=== PATIENT | male | born 1985 | race Caucasian/White ===

== ENCOUNTER 2017-11-26 13:50 | Emergency (ER) | payer OTHER ==
[2017-11-26] MEDS ORDERED: NS 500 ML IV ONE (14:09)
--- NOTE | 2017-11-26 14:24 | CPEKG ---
Heart Rate: 85 RR Interval: 706 P-R Interval: 136 QRSD Interval: 106 QT Interval: 380 QTC Interval: 452 P [place]: 71 QRS [place]: 84 T Wave [place]: 34 EKG Severity - NORMAL ECG - EKG Impression: SINUS RHYTHM Electronically Signed By: Fran Broussard 26-Nov-2017 14:48:00
[2017-11-26 14:34] LABS: PLATELET COUNT 229 10^3/uL (150-400)
--- NOTE | 2017-11-26 15:44 | EDPHY ---
H & P Time Seen by Provider: 11/26/17 14:09 HPI/ROS: HPI Chest fluttering and tightness. 32-year-old male by private vehicle with his . This patient reports that 3 weeks ago he had a stomach illness with associated nausea and vomiting. Shortly after this he noticed that he had some tightness in his left lower chest. He reports that this would come and go sporadically. He reports that a few days after this he developed what he describes as a fluttering/vibrating sensation in his right lower chest. He reports that he has had this on and off for the last 3 weeks. He reports that the tightness in his chest has gone away primarily but he still has a sensation of fluttering in the right lower chest. He reports that this is relieved by putting pressure on the area or holding his baby close to the area. He denies any significant past medical history. He is not on any prescription medications. ROS: Constitutional: No fever, no chills. No weakness. Eyes: No discharge. No changes in vision. ENT: No sore throat. No nasal congestion or rhinorrhea. Respiratory: No cough. No shortness of breath. Cardiac: As above. Gastrointestinal: No abdominal pain, as above. Genitourinary: No hematuria. No dysuria or increased frequency with urination. Musculoskeletal: No back pain. No neck pain. No myalgias or arthralgias. Skin: No rashes. Neurological: No headache. No focal weakness or altered sensation. Past medical history: He denies any significant past medical history. Social history: Nonsmoker. He is here with his . Drinks a glass of whiskey 5 nights a week. No IV drugs or street drugs. Specifically no cocaine or methamphetamine abuse. Physical Exam: General Appearance: Alert, no distress. This patient is responding to questions appropriately and in full sentences. This patient appears well- hydrated and well-nourished. Eyes: Pupils equal and round no pallor or injection. No lid edema, erythema or injection. Respiratory: There are no retractions, lungs are clear to auscultation with good air movement bilaterally. Cardiovascular: Regular rate and rhythm. No murmur. Gastrointestinal: Abdomen is soft and nontender, no masses, bowel sounds normal. No focal tenderness at McBurney's point. No Mello sign. Neurological: Motor sensory function is grossly intact. Cranial nerves are normal. Gait is normal. Skin: Warm and dry, no rashes. Musculoskeletal: Neck is supple and nontender. Extremities are symmetrical. All joints range without pain or impingement. Psychiatric: No agitation. No depression. Database: EKG: EKG time is 2:20 p.m.; EKG shows a narrow complex normal sinus rhythm with a ventricular rate of 85. The [place], QRS, QT intervals are within normal limits. There are no ST-T wave changes indicative of ischemic or injury pattern. No evidence of right heart strain. No evidence of WPW, Brugada syndrome, hypertrophic cardiomyopathy. Interpreted by me. Imaging: Procedures: Emergency department course: IV placed. He was placed on a compliance engineer. Vital signs reviewed and are normal. EKG obtained and reviewed by myself. 3:40 p.m., patient resting comfortably. Reports he is still feeling lightheaded. No shortness of breath. No chest discomfort. No palpitations. Waiting on troponin result. 4:10 p.m., patient re-evaluated. Resting comfortably. I discussed the results of his emergency department workup and troponin result. He feels comfortable going home at this time and I feel he is safe for discharge. Follow-up and return to emergency department precautions reviewed with him and his . All of their questions were answered. The patient was discharged in good condition. Differential Diagnosis: The differential diagnosis on this patient includes but is not limited to anxiety reaction, sinus arrhythmia, PVCs, PACs. Acute coronary syndrome, pulmonary embolism, aortic dissection, atrial fibrillation, other SVT, ventricular tachycardia unlikely. This represents a partial list of diagnoses considered. These considerations are based on history, physical exam, past history, reassessment and diagnostic testing. Smoking Status: Never smoked Constitutional: Initial Vital Signs Temperature (C) 37.1 C 11/26/17 13:52 Heart Rate 94 11/26/17 13:52 Respiratory Rate 18 11/26/17 13:52 Blood Pressure 144/77 H 11/26/17 13:52 O2 Sat (%) 98 11/26/17 13:52 O2 Delivery Mode Room Air Allergies/Adverse Reactions: No Known Allergies Allergy (Unverified 11/26/17 13:51) Home Medications: Medication Instructions Recorded NK [No Known Home Meds] 11/26/17 Medical Decision Making - Data Points Laboratory Results: Laboratory Results 11/26/17 14:21 11/26/17 14:21 11/26/17 11/26/17 11/26/17 14:21 14:21 14:21 WBC RBC Hgb Hct MCV MCH MCHC RDW Plt Count MPV Neut % (Auto) Lymph % (Auto) [place] % (Auto) Eos % (Auto) Baso % (Auto) Nucleat RBC Rel Count Absolute Neuts (auto) Absolute Lymphs (auto) Absolute Monos (auto) Absolute Eos (auto) Absolute Basos (auto) Absolute Nucleated RBC Immature Gran % Immature Gran # Sodium 141 mEq/L mEq/L (135-145) Potassium 4.0 mEq/L mEq/L (3.5-5.2) Chloride 104 mEq/L mEq/L (97-110) Carbon Dioxide 27 mEq/l mEq/l (22-31) Anion Gap 10 mEq/L mEq/L (8-16) BUN 12 mg/dL mg/dL (7-23) Creatinine 1.1 mg/dL mg/dL (0.7-1.3) Estimated GFR > 60 Glucose 160 mg/dL H mg/dL (70-100) Calcium 8.9 mg/dL mg/dL (8.5-10.4) Troponin I < 0.012 ng/mL ng/mL (0.000-0.034) TSH 1.310 uIU/mL uIU/mL (0.465-4.680) 11/26/17 14:21 WBC 6.76 10^3/uL 10^3/uL (3.80-9.50) RBC 5.00 10^6/uL 10^6/uL (4.40-6.38) Hgb 15.3 g/dL g/dL (13.7-17.5) Hct 43.6 % % (40.0-51.0) MCV 87.2 fL fL (81.5-99.8) MCH 30.6 pg pg (27.9-34.1) MCHC 35.1 g/dL g/dL (32.4-36.7) RDW 12.3 % % (11.5-15.2) Plt Count 229 10^3/uL 10^3/uL (150-400) MPV 9.3 fL fL (8.7-11.7) Neut % (Auto) 66.3 % % (39.3-74.2) Lymph % (Auto) 27.2 % % (15.0-45.0) [place] % (Auto) 5.2 % % (4.5-13.0) Eos % (Auto) 0.9 % % (0.6-7.6) Baso % (Auto) 0.3 % % (0.3-1.7) Nucleat RBC Rel Count 0.0 % % (0.0-0.2) Absolute Neuts (auto) 4.48 10^3/uL 10^3/uL (1.70-6.50) Absolute Lymphs (auto) 1.84 10^3/uL 10^3/uL (1.00-3.00) Absolute Monos (auto) 0.35 10^3/uL 10^3/uL (0.30-0.80) Absolute Eos (auto) 0.06 10^3/uL 10^3/uL (0.03-0.40) Absolute Basos (auto) 0.02 10^3/uL 10^3/uL (0.02-0.10) Absolute Nucleated RBC 0.00 10^3/uL 10^3/uL (0-0.01) Immature Gran % 0.1 % % (0.0-1.1) Immature Gran # 0.01 10^3/uL 10^3/uL (0.00-0.10) Sodium Potassium Chloride Carbon Dioxide Anion Gap BUN Creatinine Estimated GFR Glucose Calcium Troponin I TSH Medications Given: Discontinued Medications Sodium Chloride (Ns) 500 mls @ 1,000 mls/hr IV EDNOW ONE PRN Reason: Protocol Stop: 11/26/17 14:38 Last Admin: 11/26/17 14:35 Dose: 500 mls Departure - Departure Disposition: Home, Routine, Self-Care Clinical Impression: Palpitations Condition: Good Instructions: Heart Palpitations (ED) Additional Instructions: Read and follow provided instructions. Follow-up with your primary care physician or Cardiology within 2-3 days for re- evaluation as discussed. Avoid caffeinated beverages and energy drinks. Keep well hydrated. Return to the emergency department for worsening symptoms, chest pain, worsening or persistent palpitations or other serious concerns. Referrals: NONE *PRIMARY CARE P,. [Primary Care Provider] - As per Instructions Serene Huerta MD [Medical Doctor] - As per Instructions
[2017-11-26 16:31] VITALS: BP 119/62
== END 2017-11-26 16:31 | disposition home or self-care (01) ==
DX: R00.2 Palpitations (principal); E86.9 Volume depletion, unspecified